=== PATIENT | female | born 1965 | race Caucasian/White ===

== ENCOUNTER → 2017-08-04 08:27 | Outpatient (CLI) | payer OTHER, SELFPAY ==
--- NOTE | 2017-08-04 | DI.US.S_ITS ---
PROCEDURE: US ABDOMEN COMPLETE INDICATIONS: UPPER ABDOMINAL PAIN TECHNIQUE: Real-time scanning was performed of the abdominal and retroperitoneal organs, with image documentation. COMPARISON: None. FINDINGS: Liver: Liver is normal in size and homogeneous in echotexture. Gallbladder: Several shadowing stones are seen within the gallbladder lumen, with the largest measuring up to 1.6 cm. These stones appear mobile. The gallbladder wall is not thickened, measuring 3 mm or less. No specific pericholecystic fluid is seen. The sonographic Hernandez sign is negative. Biliary ducts: Intrahepatic bile ducts are non-dilated. Extrahepatic bile duct caliber measures 4 mm. Normal is 6-7 mm or less in diameter, or 10 mm or less post-cholecystectomy. Pancreas: Visualized portions of the pancreas are sonographically normal. Spleen: Spleen is normal in size and homogeneous in echotexture. Kidneys: Kidneys are normal in size and echotexture. Right kidney measures 10.2 cm long; left kidney measures 12.2 cm long. No hydronephrosis or nephrolithiasis. No solid masses. The renal cortex measures within normal limits for thickness. Aorta: Visualized aorta is normal in caliber at less than 3 cm. Iliacs: Proximal common iliac arteries are normal in caliber at less than 2.5 cm. IVC: Intrahepatic inferior vena cava is patent. Miscellaneous: No free abdominal fluid. IMPRESSION: Gallstones are seen, without additional sonographic signs of cholecystitis. No biliary dilatation. Dictated by: Bc Harding M.D. on 08/04/2017 at 8:51 Approved by: Bc Harding M.D. on 08/04/2017 at 8:52
== END ==
PROVIDERS: PCP Internal Medicine; Visit Provider Internal Medicine
DX: K80.80 Other cholelithiasis without obstruction (principal); R10.10 Upper abdominal pain, unspecified
CPT/HCPCS: 76700

== ENCOUNTER 2017-09-29 07:46 | Day surgery (SDC) | payer OTHER, SELFPAY ==
[2017-09-21 10:55] VITALS: BMI 29.5
[2017-09-29] VITALS (7 sets, daily range): BP systolic 114–136; BP diastolic 69–88; PULSE 78–98; RESP 11–22; TEMP 36–36.8; O2SAT 96–100; BMI 29.5
--- NOTE | 2017-09-29 | PATH_ITS ---
[facility] Accession Number: [id number] . 01 Material submitted: . GALLBLADDER . 02 Diagnosis: Gallbladder, Laparoscopic Cholecystectomy: Chronic cholecystitis, cholesterolosis, and cholelithiasis. One benign cystic duct lymph node (0/). MRV/10/01/2017 . 02 Electronically signed: . Christina Vázquez MD, Pathologist NPI- [id number] . 01 Gross description: . Received in formalin, labeled gallbladder, is an intact gallbladder (length-7.7 cm, diameter-2.5 cm) with green smooth and shiny serosa and a patent cystic duct. A possible lymph node (0.5 x 0.3 x 0.2 cm) is identified. The lumen contains dark green viscous bile and multiple bright yellow solid smooth calculi (7.8 x 4.5 x 2.0 cm) with osmin cut surfaces. The mucosa is green smooth and flat. The wall is up to 0.1 cm thick. No nodules, masses or lesions are identified. Section code: (A1) cystic duct resection margin and two serial sections from the body; (A2) two longitudinal sections from the fundus; (A3) one intact lymph node. ([id number]) /[facility] . 02 Pathologist provided ICD-10: K81.1 . 02 CPT . 796038 Performed at: 01 [facility] [address] [id number] MD Ramon Khalil MD Phone: [phone] Performed at: 02 [facility] [address] [place], [place] [id number] MD Shine Newman MD Phone: [phone]
[2017-09-29] MEDS: LACTATED RINGERS 1,000 ML 42 ML IV (08:10)
--- NOTE | 2017-09-29 10:07 | PM.PREOP ---
Pre-operative Note Interval Note Pre-op Check: Yes History & Physical Reviewed by Physician Changes: No
[2017-09-29] MEDS: CEFAZOLIN 2 GM/100 ML FROZ.PIGGY IV (10:21)
--- NOTE | 2017-09-29 10:54 | SUR.OPER ---
Supine on padded OR bed, head on pillow, safety belt at thigh, left arm padded and tucked at side. Right arm secured on padded arm oard <90 degrees abduction. Legs uncrossed. Padded footboard in place. Tape over blanket to secure lower legs.
[2017-09-29] MEDS: BUPIVACAINE 0.5% (PF) VIAL 30 ML INJ (11:08)
[2017-09-29] MEDS: LIDOCAINE 1% W/EPI INJ 20 ML INJ (11:09)
--- NOTE | 2017-09-29 11:21 | PM.OP.1 ---
Operative Date/Time/Diagnoses Date of procedure: 09/29/17 Time of procedure: 11:21 Pre-op diagnosis: Symptomatic cholelithiasis and cholecystitis Post-op diagnosis: same Procedure & Clinicians Procedure: Laparoscopic cholecystectomy Same procedure as scheduled: Yes Indications: Right upper quadrant pain and postprandial nausea and vomiting Surgeon: Kizzy Monson Click Yes if Unassisted: Yes Anesthesia Type: General (Dr. Antonio prabhakar) and Local Operative Notes Findings: 1. Adhesions from the gallbladder to the colon and stomach 2. No obvious evidence of current infection Closure Type: primary Specimen(s): other (Gallbladder in formalin to pathology) Estimated Blood Loss (mL): 25 Procedure in detail: After obtaining informed consent, the patient was brought to the operating room and placed in the supine position on the operating table. Following successful induction of general endotracheal anesthesia, appropriate padding of all bony prominences, and placement of appropriate monitors, the abdomen was prepped and draped in a standard surgical fashion. A timeout was held per SCOAP protocol. Following infiltration with local anesthetic to create a field block, an incision was created superior to the umbilicus and carried down through the skin and subcutaneous tissue to reveal the fascia below. 2-0 Vicryl retention sutures are placed on either side of the midline and the abdomen was entered under direct vision using a 15 blade scalpel. A 10 mm blunt trocar was placed in the abdominal cavity and it was insufflated to 15 mm of Hg pressure. The patient was placed in reverse Trendelenburg position with the left side rotated toward the floor. A second 5 mm trocar was placed in the midepigastrium and 2 more in the right upper quadrant, again after infiltration with local anesthetic and under direct vision with the camera. The gallbladder was grasped in the fundus and elevated up over the liver. This revealed the cholecysto-hepatoduodenal ligament. The cystic duct and artery were carefully identified with gentle dissection. As we were able to clearly see the structures as well as the junction with the common duct; we elected not to perform a cholangiogram. 3 clips were placed proximally on the cystic duct and one distally. The duct was divided between these clips. 2 clips were placed proximally on the cystic artery and one distally. The artery was divided between these clips. The gallbladder was then liberated from its bed in the liver using Bovie cautery. It was placed in an Endoscopic bag and removed via the umbilical port. The camera was returned to the abdominal cavity and the operative site examined carefully. Hemostasis was obtained with cautery. The abdomen was irrigated copiously with warm saline solution and then aspirated free of all particulate matter and fluid. Trochars were then removed under direct vision and the abdomen desufflated by giving the patient a Valsalva maneuver. The umbilical incision was closed with interrupted Vicryl suture and Monocryl sutures were placed in the skin. The remaining skin incisions were closed with Monocryl suture. All sponge, needle, and instrument counts were correct at the conclusion of the case. The patient was allowed to awaken from anesthesia without difficulty and taken to the post anesthesia care unit in good condition. Complications: none Condition: stable Disposition: PACU Plan for aftercare: 1. Discharge to home 2. Follow up with me in 2 week
[2017-09-29] MEDS: HYDROMORPHONE 2 MG INJ 0.5 MG IV (11:48)
[2017-09-29] MEDS: ONDANSETRON 4 MG/2 ML INJ IV (12:19)
[2017-09-29] MEDS: OXYCODONE/ACETAMINOPHEN 5/325 TABLET 1 TAB PO (12:24)
== END 2017-09-29 12:48 | disposition home or self-care (01) ==
PROVIDERS: PCP Internal Medicine; Visit Provider Surgery
PROC: 0FT44ZZ Resection of Gallbladder, Percutaneous Endoscopic Approach (ICD-10-PCS; CPT 47562; principal; 2017-09-29 09:45)
DX: K80.10 Calculus of gallbladder with chronic cholecystitis without obstruction (principal); K82.8 Other specified diseases of gallbladder
CPT/HCPCS: 47562; 93005; 93010; J0690; J1100; J1170; J1885; J2405; J2704

== ENCOUNTER → 2018-05-30 13:42 | Outpatient (CLI) | payer SELFPAY ==
--- NOTE | 2018-05-30 | DI.MG.S_ITS ---
BILATERAL DIGITAL SCREENING MAMMOGRAM 3D/2D WITH CAD: 05/30/2018 CLINICAL: Routine screening. Comparison is made to exam dated: 09/13/2007 [facility]. There are scattered fibroglandular elements in both breasts. Current study was also evaluated with a Computer Aided Detection (CAD) system. There is 0.4 cm oval equal density asymmetry in the left breast middle depth inferior region seen on the mediolateral oblique view only. No other significant masses, calcifications, or other findings are seen in either breast. IMPRESSION: INCOMPLETE: NEEDS ADDITIONAL IMAGING EVALUATION The 0.4 cm oval equal density asymmetry in the left breast is indeterminate. Additional views with possible ultrasound are recommended. This exam was interpreted at Station ID: [id number]. NOTE: For mammograms, a report in lay terms will be sent to the patient. Approximately 15% of breast malignancies will not be visualized mammographically. In the management of a palpable breast mass, a negative mammogram must not discourage biopsy of a clinically suspicious lesion. Electronically Signed By: Jonathan garcia/angie:05/30/2018 17:19:00 letter sent: Additional Imaging Needed ACR BI-RADS Category 0: Incomplete 3340F
== END ==
PROVIDERS: PCP Family Medicine; Visit Provider Internal Medicine
DX: Z12.31 Encounter for screening mammogram for malignant neoplasm of breast (principal)
CPT/HCPCS: 77063; 77067

== ENCOUNTER → 2018-06-23 13:02 | Outpatient (CLI) | payer OTHER, SELFPAY ==
--- NOTE | 2018-06-23 | DI.US.S_ITS ---
LIMITED ULTRASOUND OF LEFT BREAST: 06/23/2018 CLINICAL: Additional evaluation requested from prior study. Comparison is made to exams dated: 06/23/2018 mammogram, 05/30/2018 mammogram, and 09/13/2007 mammogram - [facility]. Real-time ultrasound of the left breast 8-10 o'clock region was performed. Stone scale images of the real-time examination were reviewed. A tiny skin lesion was seen at the 9 o'clock position, but its correlation to the mammographic finding is doubtful. No other abnormalities were seen sonographically in the left breast. IMPRESSION: PROBABLY BENIGN No convincing sonographic correlate to the probably benign 4 mm nodule seen in the medial left breast. A follow-up left mammogram in 6 months is recommended to demonstrate stability. Findings and recommendations were conveyed to the patient. This exam was interpreted at Station ID: [id number]. Electronically Signed By: Lupe wiseman/:06/23/2018 15:44:51 letter sent: Followup Recommended Ultrasound BI-RADS: 3 Probably benign
--- NOTE | 2018-06-23 | DI.MG.S_ITS ---
UNILATERAL LEFT DIGITAL DIAGNOSTIC MAMMOGRAM 3D/2D WITH ADDITIONAL VIEWS: 06/23/2018 CLINICAL: Additional evaluation requested from prior study. Comparison is made to exams dated: 05/30/2018 mammogram and 09/13/2007 mammogram - [facility]. There are scattered fibroglandular elements in left breast. There is a 4 mm oval mass with a circumscribed margin in the left breast at 10 o'clock middle depth with the long axis parallel to the skin. It is superficial in the tissue. No other significant masses or calcifications are seen in the breast. IMPRESSION: INCOMPLETE: NEEDS ADDITIONAL IMAGING EVALUATION The 4 mm oval mass in the left breast is indeterminate. An ultrasound is recommended and was subsequently performed. This exam was interpreted at Station ID: [id number]. NOTE: For mammograms, a report in lay terms will be sent to the patient. Approximately 15% of breast malignancies will not be visualized mammographically. In the management of a palpable breast mass, a negative mammogram must not discourage biopsy of a clinically suspicious lesion. Electronically Signed By: Lupe wiseman/:06/23/2018 15:39:51 ACR BI-RADS Category 0: Incomplete [id number]
== END ==
PROVIDERS: PCP Family Medicine; Visit Provider Family Medicine
DX: R92.8 Other abnormal and inconclusive findings on diagnostic imaging of breast (principal); N63.22 Unspecified lump in the left breast, upper inner quadrant
CPT/HCPCS: 76642; 77065; G0279

== ENCOUNTER → 2019-09-25 14:03 | Outpatient (CLI) | payer OTHER, SELFPAY ==
--- NOTE | 2019-09-25 14:14 | DI.MG.S_ITS ---
BILATERAL DIGITAL DIAGNOSTIC MAMMOGRAM 3D/2D SHORT-TERM FOLLOW-UP: 09/25/2019 CLINICAL: Patient returns for a 6 month follow up of the left breast, due for bilateral exam. Comparison is made to exams dated: 06/23/2018 mammogram, 05/30/2018 mammogram, and 09/13/2007 mammogram - [facility]. There are scattered fibroglandular elements in both breasts. The previously described 0.4 cm oval equal density asymmetry in the left breast middle depth inferior region seen on the mediolateral oblique view only is no longer seen. There was no correlate seen on the prior ultrasound. A skin lesion near the 9 o'clock position was seen during sonographic evaluation but was felt to not correlate with the mammogram. No other significant masses, calcifications, or other findings are seen in either breast. IMPRESSION: BENIGN There is no mammographic evidence of malignancy. Return to annual mammogram screening schedule is recommended. Findings and recommendations were conveyed to the patient during today's visit. This exam was interpreted at Station ID: [id number]. NOTE: For mammograms, a report in lay terms will be sent to the patient. Approximately 15% of breast malignancies will not be visualized mammographically. In the management of a palpable breast mass, a negative mammogram must not discourage biopsy of a clinically suspicious lesion. Electronically Signed By: Jonathan Ness M.D. at/:09/25/2019 14:54:47 letter sent: Normal Exam ACR BI-RADS Category 2: Benign Finding(s) 3342F
--- NOTE | 2019-09-25 14:15 | DI.US.S_ITS ---
PROCEDURE: US ABD AORTA ANEURYSM SCREEN INDICATIONS: AAA TECHNIQUE: Real time scanning was performed of the aorta and iliac arteries, with image documentation. COMPARISON: [facility], , US ABDOMEN COMPLETE, 08/04/2017, 8:43. FINDINGS: Aorta: Proximal aortic diameter measures 2.4 cm. Mid-aorta measures 1.8 cm. Distal aortic diameter is 1.7 cm. Iliac arteries: Right common iliac artery measures 1.1 cm. Left common iliac artery measures 1.1 cm. IMPRESSION: No abdominal aortic or proximal common iliac artery aneurysm. Dictated by: Rafita Waite [facility] Interpreted: Bryon Paul MD on 09/25/2019 at 16:08 Approved by: Bryon Paul M.D. on 09/25/2019 at 17:03
== END ==
PROVIDERS: PCP Family Medicine; Referring Provider Family Medicine; Visit Provider Family Medicine
DX: R92.8 Other abnormal and inconclusive findings on diagnostic imaging of breast (principal); N63.20 Unspecified lump in the left breast, unspecified quadrant; Z13.6 Encounter for screening for cardiovascular disorders
CPT/HCPCS: 76706; 77066; G0279

== ENCOUNTER → 2020-01-15 12:20 | Outpatient (CLI) | payer OTHER, SELFPAY ==
[2020-01-15 12:57] LABS: COVID19 -Nasal RAPID Negative (Negative)
== END ==
PROVIDERS: PCP Family Medicine; Visit Provider Physician Assistant
DX: Z11.59 Encounter for screening for other viral diseases (principal)
CPT/HCPCS: 87635

== ENCOUNTER → 2021-01-30 07:50 | Outpatient (CLI) | payer OTHER, SELFPAY ==
--- NOTE | 2021-01-30 | DI.ECHO.S_ITS ---
[facility]---------[facility] +---------+ : : [address] : : : : [id number] : : : : Phone: [phone] Echocardiogram Report + + :Name: SIERRA GONZALES Study Date: 01/30/2021 Height: 64 in : :[facility] ReadingLocation: Weight: 160 lb : : Gender: Female BSA: 1.8 m2 : :: 1965 Age: 55 yrs BP: 117/81 mmHg: :Reason For Study: Family hx of ischemic heart disease : : Performed By: Elijah Díaz : :Referring: BERNARDINO VILLAFANA : + + Interpretation Summary The left ventricle is normal in size and wall thickness. Left ventricular systolic function appears normal without focal wall motion abnormalities. The ejection fraction is estimated to be 55-60%. The right ventricle is normal in size and function. The right ventricular systolic pressure is estimated to be at least 29 mmHg based on an estimated right atrial pressure of 3 mm Hg. Both atria are normal in size. There is no significant valvular heart disease. The aortic root is normal size. Procedure: A two-dimensional transthoracic echocardiogram with color flow and Doppler was performed. The study quality was technically adequate. There is no prior echocardiogram noted for this patient. The patient was in normal sinus rhythm during the exam. Left Ventricle: The left ventricle is normal in size and wall thickness. Left ventricular systolic function appears normal without focal wall motion abnormalities. The ejection fraction is estimated to be 55-60%. Diastolic function could not be accurately assessed due to contradictory data. Right Ventricle: The right ventricle is normal in size and function. Atria: Both atria are normal in size. There is no Doppler evidence for an interatrial shunt. Mitral Valve: The mitral valve leaflets appear borderline thickened, but open well. There is a flat closure plane of the the mitral valve leaflets. There is no mitral regurgitation noted. Aortic Valve: The aortic valve is trileaflet. The aortic valve opens well. There is trace aortic regurgitation. Tricuspid Valve: The tricuspid valve is normal. There is mild tricuspid regurgitation. The right ventricular systolic pressure is estimated to be at least 29 mmHg based on an estimated right atrial pressure of 3 mm Hg. Pulmonic Valve: The pulmonic valve is normal in structure and function. There is no significant valvular heart disease. Great Vessels: The aortic root is normal size. The ascending aorta is normal in size. The aortic arch is normal in size. The IVC is of normal diameter and collapses greater than 50% with a sniff. This suggests a low right atrial pressure of 3 mm Hg. Pericardium/ Pleura There is no pericardial effusion. There is an anterior echo-free space consistent with a fat pad. There is no pleural effusion. MMode/2D Measurements & Calculations LVIDd: 4.4 cm LVOT diam: 1.9 cm LVIDs: 3.1 cm Ao root diam: 3.4 cm FS: 29.4 % asc Aorta Diam: 3.1 cm IVSd: 0.69 cm Ao Arch Diam (Prox Trans): 2.5 cm LVPWd: 0.93 cm LV galicia. diameter/BSA (cm/m^2): 2.4 LV sys. diameter/BSA (cm/m^2): 1.7 LA A2 area: 11.4 cm2 RA long axis: 5.0 cm LA A4 area: 12.6 cm2 RA area: 13.0 cm2 LA length (vol): 4.8 cm RA vol: 28.5 ml LA vol: 25.2 ml RA : 16.0 ml/m2 LA vol index: 14.1 ml/m2 TAPSE: 1.9 cm Doppler Measurements & Calculations Ao V2 max: 137.2 cm/sec LVOT Max Anjum: 138.0 cm/sec Ao V2 mean: 100.0 cm/sec LV V1 max P.6 mmHg Ao max P.5 mmHg LV V1 VTI: 25.9 cm Ao mean P.3 mmHg EMMA(I,D): 3.0 cm2 Ao V2 VTI: 26.1 cm EMMA(V,D): 3.0 cm2 sev ratio: 0.99 EMMA indexed to BSA (cm^2/m^2): 1.7 MV E max anjum: 97.9 cm/sec TR max anjum: 252.9 cm/sec MV A max anjum: 98.3 cm/sec TR max P.6 mmHg MV E/A: 1.00 PA V2 max: 83.7 cm/sec Med Peak E' Anjum: 6.0 cm/sec PA V2 mean: 55.9 cm/sec E/E' med: 16.4 PA mean P.4 mmHg Lat Peak E' Anjum: 5.4 cm/sec PA pr(Accel): 17.3 mmHg E/E' lat: 18.2 E/e' average: 17.3 MV dec time: 0.11 sec SV(LVOT): 77.3 ml Reading Physician:02:41 PM
== END ==
PROVIDERS: PCP Family Medicine; Referring Provider Family Medicine; Visit Provider Family Medicine
DX: I07.1 Rheumatic tricuspid insufficiency (principal); Z13.6 Encounter for screening for cardiovascular disorders; Z82.49 Family history of ischemic heart disease and other diseases of the circulatory system
CPT/HCPCS: 93306

== ENCOUNTER → 2023-03-15 11:54 | Outpatient (CLI) | payer OTHER, SELFPAY ==
--- NOTE | 2023-03-15 11:57 | DI.RAD.S_ITS ---
PROCEDURE: XR CHEST 2V INDICATIONS: RESP INFECTION TECHNIQUE: 2 views of the chest were acquired. COMPARISON: None. FINDINGS: Surgical changes and devices: None. Lungs and pleura: Lungs are clear. No pleural effusions or pneumothorax. Mediastinum: Mediastinal contours are normal. Heart size is normal. Bones and chest wall: No suspicious bony abnormalities. Soft tissues appear unremarkable. IMPRESSION: No acute pulmonary process. Dictated by: Johana Higginbotham M.D. on 03/15/2023 at 20:54 Approved by: Johana Higginbotham M.D. on 03/15/2023 at 20:54
== END ==
PROVIDERS: PCP Family Medicine; Referring Provider Family Medicine; Visit Provider Family Medicine
DX: J06.9 Acute upper respiratory infection, unspecified (principal); R05.1 Acute cough
CPT/HCPCS: 0241U; 71046

== ENCOUNTER → 2023-03-15 12:24 | Outpatient (ROUT) | payer OTHER, SELFPAY ==
[2023-03-15 13:10] LABS: Influenza A - CEPHEID Flu A POSITIVE (NEGATIVE); Influenza B - CEPHEID Flu B NEGATIVE (NEGATIVE); Respiratory Syncytial Virus Negative (Negative)
[2023-03-15 13:34] LABS: COVID-19 CEPHEID 4-PLEX PCR Negative (Negative)
== END ==
PROVIDERS: PCP Family Medicine; Visit Provider Family Medicine
DX: R05.1 Acute cough (principal)
CPT/HCPCS: 0241U